=== PATIENT | female | born 1950 | race Caucasian/White ===

== ENCOUNTER → 2019-01-07 | Day surgery (SDC) | payer BC, OTHER ==
[~2019-01-07] VITALS: Ht 162.6 cm; Wt 60.8 kg
[~2019-01-07] MED LIST: ASPIRIN EC325 M1 PO; CALCIUM 600 +1 EAC1 PO; CENTRUM SILVER1 EAC4 PO; CRANBERRY500 M3 PO; FIBER500 MG PO; HAIR, SKIN & N1 EAC3 PO; IRON325 PO; MELATONIN1 MG PO; PERCOCET 7.5-31 EACH PO; SIMVASTATIN40 MG PO; VITAMIN B-12500 MCG PO
--- NOTE | ~2019-01-07 | O ---
[facility] [place] [address] OPERATIVE REPORT Name: ANTHONY HURTADO Room #: REG [facility]#: [id number] Admission: 01/07/19 ������������������ Attend Phys: [place] Muhammad MD Discharge: ������������������ Date of : 50 Report #: [id number] THIS REPORT FOR: //name// CC: Roro Muhammad DATE OF SERVICE: 01/07/2019 PREOPERATIVE DIAGNOSIS: Left posterior tibial tendon dysfunction, stage 2. POSTOPERATIVE DIAGNOSIS: Left posterior tibial tendon dysfunction, stage 2. PROCEDURES: 1. Left posterior tibial tendon reconstruction with flexor digitorum longus tendon transfer. 2. Left calcaneal osteotomy. SURGEON: Dr. [place] Muhammad. ANESTHESIA: General. ESTIMATED BLOOD LOSS: Minimal. DRAINS: No drains. TOURNIQUET TIME: 45 minutes. DESCRIPTION OF PROCEDURE: The patient was brought to the operating room where she was placed under general anesthesia. Once under adequate general anesthesia, her left lower extremity was prepped and draped in sterile manner. The extremity was elevated, exsanguinated, tourniquet placed 300 mmHg. A lateral incision overlying the tuberosity of the calcaneus was made. This was dissected down through soft tissue to the lateral wall of the calcaneus. The periosteum was elevated off of the lateral wall of the calcaneus and a sagittal saw was used then to transect the calcaneus. A large osteotome was used to complete the osteotomy and then medialize it approximately 8 mm. This was then fixed into place with a single 7.3 mm cannulated screw, placed under fluoroscopic guidance. Excellent fixation and alignment was achieved in this manner. These wounds were then irrigated copiously and closed with 2-0 Vicryl in subcutaneous tissues and millie for the skin. We then proceeded medially and a medial incision approximately 8 cm in length was made over the posterior tibial tendon in its insertion site. There was abundant inflammatory fluid upon entering the posterior tibial tendon sheath, which was incised in line with the incision. The tendon itself was degenerated and thickened. This was debrided with tenotomy scissors. The floor of the posterior tibial tendon sheath was then opened exposing the flexor digitorum longus tendon, which was then followed [address] [address] OPERATIVE REPORT Name: SONY HURTADOA Pamela Room #: REG [facility].#: [id number] Admission: 01/07/19 ������������������ Attend Phys: [place] Muhammad MD Discharge: ������������������ Date of : 50 Report #: [id number] to the master knot of Ferdinand where it was incised and brought medially into the wound. A drill hole for the 5.5 mm Bio-Tenodesis screw was then placed and the tendon was then passed through this utilizing a suture passer. Once passed into the medial navicular, the flexor digitorum longus tendon was fixed to the navicular with the Bio-Tenodesis screw. Excellent fixation was achieved in this manner with excellent repair. This was then reinforced with 2-0 Ethibond suture, repairing the FDL to the posterior tibial tendon at its insertion. Once complete, the wound was irrigated copiously. A 2-0 Ethibond was used to close the posterior tibial tendon sheath, 2-0 Vicryl was used in subcutaneous tissues and millie were used for the skin. The wounds were dressed with Xeroform, 4 x 4s, and sterile soft compressive dressing with a short leg cast was placed. Tourniquet was let down at 45 minutes. Toes were pink and warm with good capillary refill. There were no complications from the procedure. The patient tolerated the procedure well and went to the recovery room without incident. ��������������������������������������������� ���������������������������������������� By: ��������������������������������������������� [id number] [place] Muhammad MD /nt
[2019-01-07 08:22] VITALS: BP 127/65
[2019-01-07 11:02] VITALS: BP 127/65
[2019-01-07 11:08] VITALS: BP 127/65
== END | disposition home or self-care (01) ==
LOC: OR 07:38
DX: M66.372 Spontaneous rupture of flexor tendons, left ankle and foot (principal); E78.5 Hyperlipidemia, unspecified; Z98.41 Cataract extraction status, right eye; Z98.42 Cataract extraction status, left eye; Z98.890 Other specified postprocedural states; Z79.899 Other long term (current) drug therapy; Z88.8 Allergy status to other drugs, medicaments and biological substances; Z79.82 Long term (current) use of aspirin
CPT/HCPCS: 50010; 50101; 50386; 50951; 51412; 53341; 53400; 55430; 56525; 56526; 57091; 57180; 62110; 62900; 70005